=== PATIENT | female | born 2000 | race Caucasian/White ===

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

== ENCOUNTER 2020-03-15 21:04 | Emergency (ER) | payer SELFPAY ==
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
[2020-03-15 23:43] VITALS: TEMP 97.7
[2020-03-15 23:44] VITALS: BP 133/80; O2SAT 99
--- NOTE | 2020-03-16 07:40 | RAD REPORT ---
EXAM DESCRIPTION: RAD - Foot Right 3 View - 03/15/2020 10:06 pm CLINICAL HISTORY: Right foot pain status post injury FINDINGS: No fracture or dislocation is seen
== END 2020-03-15 23:36 | disposition home or self-care (01) ==
LOC: ER 21:04
DX: M79.671 Pain in right foot (principal)
CPT/HCPCS: 99283

== ENCOUNTER 2022-04-22 17:28 | Emergency (ER) | payer SELFPAY ==
[2022-04-22 18:32] LABS: Urine Blood Negative (Negative); Urine Glucose Negative (Negative); Urine Protein Negative (Negative); Urine Specific Gravity >=1.030 (1.005-1.030); Urine pH 5.5 (5.0-7.0)
[2022-04-22] MEDS ORDERED: ONDANSETRON 4 MG/2 ML VIAL ONE (18:33)
[2022-04-22] MEDS ORDERED: NA CHLORIDE 0.9% 1,000 ML ONE (18:33)
[2022-04-22 18:34] LABS: Absolute Lymphocytes (CBC) 1.9 K/uL (0.7-4.9); Hematocrit 41.5 % (36.0-45.0); MPV 9.7 fL (7.6-11.3); RBC Red Blood Cell Count 4.99 M/uL (3.86-4.86)
[2022-04-22 18:45] LABS: Urine Bacteria >50 /HPF (<20); Urine Mucus 3+ /HPF (NONE SEEN); Urine RBC <5 /HPF (NONE SEEN)
[2022-04-22 18:51] LABS: Bilirubin Total 0.7 mg/dL (0.2-1.0); Potassium 3.5 mmol/L (3.5-5.1); Protein, Total 7.3 g/dL (6.4-8.2)
--- NOTE | 2022-04-22 19:19 | RAD REPORT ---
EXAM DESCRIPTION: CTAbdomen Pelvis W Contrast - 04/22/2022 7:04 pm CLINICAL HISTORY: Abdominal pain. R flank and RLQ pain COMPARISON: <Comparisons> TECHNIQUE: Biphasic CT imaging of the abdomen and pelvis was performed with 100 ml non-ionic IV cont rast. All CT scans are performed using dose optimization technique as appropriate and may include automated exposure control or mA/KV adjustment according to patient size. FINDINGS: The lung bases are clear.Fluid is seen in the distal esophagus. Small hiatal hernia. The liver, spleen, pancreas, adrenal glands and kidneys are within normal limits. No bowel obstruction, free air, free fluid or abscess. The appendix is normal. No evidence of signi ficant lymphadenopathy. No suspicious bony findings. IMPRESSION: No acute intra-abdominal or pelvic finding.
[2022-04-22] MEDS ORDERED: CEFTRIAXONE 1000 MG/VIAL ONE (19:32)
--- NOTE | 2022-04-22 19:37 | ER ---
Nurse's Notes [facility] Name: Christie Ceron Age: 21 yrs Sex: Female : 2000 Arrival Date: 04/22/2022 Time: 17:33 Bed 9 Private MD: Diagnosis: UTI/ Urinary tract infection, site not specified Presentation: 04/22 17:41 Chief complaint: Patient states: Right sided upper and lower abdominal pain X 2 weeks. ld1 Nausea. Coronavirus screen: At this time, the client does not indicate any symptoms associated with coronavirus-19. Ebola Screen: No symptoms or risks identified at this time. Initial Sepsis Screen: Does the patient meet any 2 criteria? No. Patient's initial sepsis screen is negative. Does the patient have a suspected source of infection? No. Patient's initial sepsis screen is negative. Risk Assessment: Do you want to hurt yourself or someone else? Patient reports no desire to harm self or others. Onset of symptoms was April 22, 2022. 17:41 Method Of Arrival: Ambulatory ld1 17:41 Acuity: DOMO 3 ld1 Triage Assessment: 17:42 General: Appears in no apparent distress. comfortable, Behavior is calm, cooperative, ld1 appropriate for age. Pain: Complains of pain in right upper quadrant and right lower quadrant Pain does not radiate. Pain currently is 8 out of 10 on a pain scale. Quality of pain is described as throbbing. EENT: No signs and/or symptoms were reported regarding the EENT system. Neuro: Level of Consciousness is awake, alert, obeys commands, Oriented to person, place, time, situation. Cardiovascular: Capillary refill < 3 seconds Patient's skin is warm and dry. Respiratory: Airway is patent Respiratory effort is even, unlabored. GI: Abdomen is round non-distended, Reports nausea. : No signs and/or symptoms were reported regarding the genitourinary system. 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 - Social history:: Smoking status: Patient denies any tobacco usage or history of. Patient/guardian denies using alcohol. Screenin:19 Abuse screen: Denies threats or abuse. Denies injuries from another. Nutritional ld1 screening: No deficits noted. Tuberculosis screening: No symptoms or risk factors identified. Fall Risk None identified. Assessment: 19:19 Reassessment: Patient appears in no apparent distress at this time. No changes from ld1 previously documented assessment. Patient and/or family updated on plan of care and expected duration. Pain level reassessed. Patient is alert, oriented x 3, equal unlabored respirations, skin warm/dry/pink. 20:02 Reassessment: Patient appears in no apparent distress at this time. Patient and/or ld1 family updated on plan of care and expected duration. Pain level reassessed. Patient is alert, oriented x 3, equal unlabored respirations, skin warm/dry/pink. 20:02 GI: Bowel sounds present X 4 quads. Abd is soft Abd is non tender. ld1 Vital Signs: 17:41 BP 145 / 77; Pulse 90; Resp 18; Temp 98.3(TE); Pulse Ox 99% on R/A; Weight 72.57 kg; ld1 Height 5 ft. 0 in. (152.40 cm); Pain 9/10; 19:19 BP 139 / 76; Pulse 89; Resp 18; Pulse Ox 100% on R/A; ld1 20:02 BP 141 / 79; Pulse 86; Resp 18; Pulse Ox 100% on R/A; ld1 17:41 Body Mass Index 31.25 (72.57 kg, 152.40 cm) ld1 ED Course: 17:33 Patient arrived in ED. am2 17:34 Orly Grigsby FNP is [facility]. jh7 17:34 Yoseph Taylor DO is Attending Physician. jh7 17:42 Triage completed. ld1 17:42 Arm band placed on right wrist. ld1 18:25 Inserted saline lock: 20 gauge in right antecubital area, using aseptic technique. zm Blood collected. 18:26 CBC with Diff Sent. zm 18:26 CMP Sent. zm 18:26 Lipase Sent. zm 18:26 Urine Microscopic Only Sent. zm 19:06 CT Abd/Pelvis - IV Contrast Only In Process Unspecified. EDMS 19:18 Dibbern, Nicole, RN is Primary Nurse. ld1 19:19 Patient has correct armband on for positive identification. Placed in gown. Bed in low ld1 position. Call light in reach. Side rails up X2. secured entrance monitor on. Pulse ox on. NIBP on. Door closed. Noise minimized. Warm blanket given. 19:19 No provider procedures requiring assistance completed. ld1 20:03 Patient admitted, IV remains in place. ld1 Administered Medications: 18:32 Drug: NS 0.9% 1000 ml Route: IV; Rate: 1 bolus; Site: right antecubital; iw 18:32 Drug: Zofran (Ondansetron) 4 mg Route: IVP; Site: right antecubital; iw 19:33 Drug: Rocephin (cefTRIAXone) 1 grams Route: IV; Rate: 1 calculated rate; Site: right ld1 antecubital; Medication: 19:19 VIS not applicable for this client. ld1 Outcome: 19:37 Discharge ordered by . eliza 20:02 Discharged to home ambulatory, with family. ld1 20:02 Condition: stable 20:02 Discharge instructions given to patient, family, Instructed on discharge instructions, follow up and referral plans. medication usage, Demonstrated understanding of instructions, follow-up care, medications, Prescriptions given X 1. 20:03 Patient left the ED. ld1 Signatures: Dispatcher [employer] EDMS Colleen Curtis, RN Trena Joshua am2 Nicole Washington, RN DAMON ld1 Mya Watt Jennifer, FNP [facility]
--- NOTE | 2022-04-22 19:37 | EDPHYS ---
Physician Documentation [facility] Name: Christie Ceron Age: 21 yrs Sex: Female : 2000 Arrival Date: 04/22/2022 Time: 17:33 Bed 9 Private MD: ED Physician Yoseph Taylor HPI: 04/22 17:50 This 21 yrs old Female presents to ER via Ambulatory with complaints of Abdominal Pain jh7 - low. 17:50 The patient presents with abdominal pain right lower quadrant. Onset: The jh7 symptoms/episode began/occurred 2 week(s) ago. The symptoms radiate to right upper quadrant. Associated signs and symptoms: Pertinent positives: nausea, Pertinent negatives: diarrhea, shortness of breath, vaginal discharge, vomiting. Patient presents for right lower quadrant pain for 2 weeks. States that movement worsens the pain, and that food has no effect on her pain. LMP last week. Reports that her belly is tender to the touch, and reports nausea and dizziness as well. States that the pain is now radiating to her right upper quadrant. Denies diarrhea and states that she had a normal bowel movement today. Denies any concern for STI. No other history.. 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 - Social history:: Smoking status: Patient denies any tobacco usage or history of. Patient/guardian denies using alcohol. ROS: 17:50 Constitutional: Negative for fever, chills, and weight loss, ENT: Negative for injury, jh7 pain, and discharge, Cardiovascular: Negative for chest pain, palpitations, and edema, Respiratory: Negative for shortness of breath, cough, wheezing, and pleuritic chest pain, Back: Negative for injury and pain, Skin: Negative for injury, rash, and discoloration, Neuro: Negative for headache, weakness, numbness, tingling, and seizure. 17:50 Abdomen/GI: Positive for abdominal pain, nausea, Negative for diarrhea, rectal pain, rectal bleeding. 17:50 All other systems are negative. Exam: 17:50 Constitutional: This is a well developed, well nourished patient who is awake, alert, jh7 and in no acute distress. ENT: Nares patent. No nasal discharge, no septal abnormalities noted. Tympanic membranes are normal and external auditory canals are clear. Oropharynx with no redness, swelling, or masses, exudates, or evidence of obstruction, uvula midline. Mucous membranes moist. Cardiovascular: Regular rate and rhythm with a normal S1 and S2. No gallops, murmurs, or rubs. Normal PMI, no JVD. No pulse deficits. Respiratory: Lungs have equal breath sounds bilaterally, clear to auscultation and percussion. No rales, rhonchi or wheezes noted. No increased work of breathing, no retractions or nasal flaring. Back: No spinal tenderness. No costovertebral tenderness. Full range of motion. Skin: Warm, dry with normal turgor. Normal color with no rashes, no lesions, and no evidence of cellulitis. Neuro: Awake and alert, GCS 15, oriented to person, place, time, and situation. Normal gait. 17:50 Abdomen/GI: Inspection: abdomen appears normal, Bowel sounds: normal, Palpation: soft, mild abdominal tenderness, in the right lower quadrant, no appreciated organomegaly. Vital Signs: 17:41 BP 145 / 77; Pulse 90; Resp 18; Temp 98.3(TE); Pulse Ox 99% on R/A; Weight 72.57 kg; ld1 Height 5 ft. 0 in. (152.40 cm); Pain 9/10; 19:19 BP 139 / 76; Pulse 89; Resp 18; Pulse Ox 100% on R/A; ld1 20:02 BP 141 / 79; Pulse 86; Resp 18; Pulse Ox 100% on R/A; ld1 17:41 Body Mass Index 31.25 (72.57 kg, 152.40 cm) ld1 MDM: 18:56 Patient medically screened. [facility] 19:36 Differential diagnosis: appendicitis, Pyelonephritis, urinary tract infection. Data [facility] reviewed: vital signs, nurses notes, lab test result(s), radiologic studies, CT scan. Data interpreted: Pulse oximetry: is 100 %. Interpretation: normal. Counseling: I had a detailed discussion with the patient and/or guardian regarding: the historical points, exam findings, and any diagnostic results supporting the discharge/admit diagnosis, to return to the emergency department if symptoms worsen or persist or if there are any questions or concerns that arise at home. Response to treatment: the patient's symptoms have mildly improved after treatment. ED course: All labs and CT scan results were discussed with the patient. She remained stable and in no distress throughout her ER visit. Her symptoms mildly improved after medication administration. Informed her that she will be treated for UTI, to take medications as prescribed, and increase p.o. fluid intake. If her symptoms worsen or she develops any new concerning symptoms, she may return to the ER for further eval. The patient understood the plan of care.. 04/22 17:43 Order name: CBC with Diff; Complete Time: 18:48 [facility] 04/22 17:43 Order name: CMP; Complete Time: 18:58 [facility] 04/22 17:43 Order name: Lipase; Complete Time: 18:58 [facility] 04/22 17:43 Order name: Urine Microscopic Only; Complete Time: 18:48 [facility] 04/22 18:32 Order name: Urine Dipstick-Ancillary; Complete Time: 18:48 [facility] 04/22 18:48 Order name: Urine Culture [facility] 04/22 17:43 Order name: CT Abd/Pelvis - IV Contrast Only; Complete Time: 19:23 [facility] 04/22 17:43 Order name: IV Saline Lock; Complete Time: 18:26 [facility] 04/22 17:43 Order name: Labs collected and sent; Complete Time: 18:26 [facility] 04/22 17:43 Order name: Urine Dipstick-Ancillary (obtain specimen); Complete Time: 18:32 [facility] 04/22 17:43 Order name: Urine Test (obtain specimen); Complete Time: 18:33 [facility] Administered Medications: 18:32 Drug: NS 0.9% 1000 ml Route: IV; Rate: 1 bolus; Site: right antecubital; iw 18:32 Drug: Zofran (Ondansetron) 4 mg Route: IVP; Site: right antecubital; iw 19:33 Drug: Rocephin (cefTRIAXone) 1 grams Route: IV; Rate: 1 calculated rate; Site: right ld1 antecubital; Disposition: 22:06 Co-signature as Attending Physician, Yoseph Taylor DO I was immediately available on-site ms3 in the Emergency Department for consultation in the care of the patient. . Disposition Summary: 04/22/22 19:37 Discharge Ordered Location: Home [facility] Problem: new [facility] Symptoms: have improved [facility] Condition: Stable [facility] Diagnosis - UTI/ Urinary tract infection, site not specified [facility] Followup: [facility] - With: Private Physician - When: 2 - 3 days - Reason: Recheck today's complaints Discharge Instructions: - Discharge Summary Sheet [facility] - Urinary Tract Infection, Adult [facility] - Antibiotic Medicine, Adult [facility] Forms: - Medication Reconciliation Form [facility] - Thank You Letter [facility] - Antibiotic Education [facility] Prescriptions: - Macrobid 100 mg Oral Capsule - take 1 capsule by ORAL route every 12 hours for 7 days; 14 capsule; Refills: 0, jh7 Product Selection Permitted Signatures: Dispatcher [employer] Colleen Johnson RN Yoseph Faustin DO DO ms3 Nicole Washington RN RN ld1 Orly Grigsby FNP FORM BUILDING SUPERVISOR [facility]
[2022-04-22 20:18] VITALS: TEMP 98.3
[2022-04-22 20:20] VITALS: O2SAT 100
[2022-04-22 20:21] VITALS: BP 141/79
== END 2022-04-22 20:03 | disposition home or self-care (01) ==
LOC: ER 17:28
DX: N39.0 Urinary tract infection, site not specified (principal)
CPT/HCPCS: 36415; 74177; 80053; 81003; 81015; 83690; 85025; 87086; 87088; 96374; 96375; 99284; J2405; J7030; Q9967

== ENCOUNTER 2024-12-08 19:22 | Emergency (ER) | payer SELFPAY ==
--- OUTSIDE RECORDS SUMMARY | 2024-12-08 19:25 | XMS REPORT | Continuity of Care Document ---
Author Name Unknown Address [address] [facility] [address] [place] [address] [facility] Address [address] [facility] 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 Name Role Phone Jatinder Sim Attending Clinician Unavailable Physician, No Primary or Family Admitting Clinic rupinder Unavailable Payers Payer Name Policy Type Policy Number Effective Date Expirati on Date Source Allergies, Adverse Reactions, Alerts Allergy Name Allergy Type Status Severity Reaction(s) Onset Date Inactive Date Treating Clinician Comments Source No Known Allergie s DA Active U 2023-11 00:00: 00 [facility] Encounters Start Date/Time End Date/Time Encounter Type Admission Type Attending Clinicians Care Facility Care Department Encounter ID Source 2024-10-21 11:11:00 2024-10-21 12:56:00 Emergency EM Jatinder Sim [facility] [id number] 20 [facility]
[2024-12-08 20:26] LABS: Hematocrit 40.4 % (36.0-45.0); Hemoglobin 14.2 g/dL (12.0-15.0); MCH 28.9 pg (27.0-35.0); MCHC 35.2 g/dL (32.0-36.0); MPV 10.3 fL (7.6-11.3); Platelets 209 thou/uL (152-406); RBC Red Blood Cell Count 4.93 M/uL (3.86-4.86); Red Cell Distribution Width 13.2 % (12.1-15.2)
--- NOTE | 2024-12-08 21:20 | RAD REPORT ---
EXAM: Transvaginal OB HISTORY: ABD PAIN COMPARISON: None TECHNIQUE: Multiple grayscale and color Doppler images were obtained in a pelvic ultrasound. Spectral analysis of the Doppler waveforms of the ovaries were performed. FINDINGS: UTERUS: There is an intrauterine gestational sac. This contains a yolk sac and pole. [place]-rump length: 0.8 cm which estimates gestational age at 6 week 3 day. A heart rate is detected at 132 bpm. Small subchorionic hemorrhage. No free fluid is seen in the pelvis. RIGHT OVARY: Vascular flow present. No suspicious mass. LEFT OVARY: Obscured by bowel gas.. IMPRESSION: Single live intrauterine with estimated age of 6 week 4 day. Small subchorionic hemorrhage which is typically of little significance.
--- NOTE | 2024-12-08 21:41 | ER ---
Nurse's Notes [facility] Name: Christie Ceron Age: 24 yrs Sex: Female : 2000 Arrival Date: 12/08/2024 Time: 19:22 Bed 18 Private MD: Diagnosis: Threatened Presentation: 12/08 19:53 Chief complaint: Patient states: reports vaginal bleeding like normal cramping but she bm8 is 6 weeks . Coronavirus screen: Vaccine status: At this time, the client does not indicate any symptoms associated with coronavirus-19. Ebola Screen: Patient negative for fever greater than or equal to 101.5 degrees Fahrenheit, and additional compatible Ebola Virus Disease symptoms Patient denies exposure to infectious person. Patient denies travel to an Ebola-affected area in the 21 days before illness onset. No symptoms or risks identified at this time. Initial Sepsis Screen: Does the patient meet any 2 criteria? No. Patient's initial sepsis screen is negative. Does the patient have a suspected source of infection? No. Patient's initial sepsis screen is negative. Risk Assessment: Do you want to hurt yourself or someone else? Patient reports no desire to harm self or others. Onset of symptoms was December 08, 2024 at 19:00. 19:53 Method Of Arrival: Ambulatory bm8 19:53 Acuity: DOMO 3 bm8 Triage Assessment: 19:54 General: Appears in no apparent distress. comfortable, Behavior is calm, cooperative, bm8 appropriate for age. Pain: Complains of pain in groin and suprapubic area Pain currently is 5 out of 10 on a pain scale. EENT: No deficits noted. No signs and/or symptoms were reported regarding the EENT system. Neuro: No deficits noted. Level of Consciousness is awake, alert, obeys commands, Oriented to person, place, time, situation, Appropriate for age. Cardiovascular: Denies chest pain. Respiratory: Airway is patent Trachea midline Respiratory effort is even, unlabored, Respiratory pattern is regular, symmetrical, Breath sounds are clear bilaterally. : Reports vaginal bleeding that is bright red, moderate flow. 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 - Infectious Disease History:: Denies. - Social history:: Smoking status: Patient denies any tobacco usage or history of. - Family history:: not pertinent. Screenin:00 [place] ED Fall Risk Assessment (Adult) History of falling in the last 3 months, mt4 including since admission No falls in past 3 months (0 pts) Confusion or Disorientation No (0 pts) Intoxicated or Sedated No (0 pts) Impaired Gait No (0 pts) Mobility Assist Device Used No (0 pt) Altered Elimination No (0 pt) Score/Fall Risk Level 0 - 2 = Low Risk. Abuse screen: Denies threats or abuse. Nutritional screening: No deficits noted. Tuberculosis screening: No symptoms or risk factors identified. Exposure risk/Travel Screening: None identified. Assessment: 21:00 Reassessment: Patient is alert, oriented x 3, equal unlabored respirations, skin mt4 warm/dry/pink. 21:00 General: Appears in no apparent distress. comfortable, Behavior is calm, cooperative, mt4 appropriate for age. Pain: Denies pain. 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 Gait is steady, Speech is normal, Facial symmetry appears normal. Cardiovascular: Capillary refill < 3 seconds. Respiratory: Airway is patent. GI: Abdomen is non-distended. : Denies burning with urination. Musculoskeletal: Range of motion: intact in all extremities. 22:00 Reassessment: Patient and/or family updated on plan of care and expected duration. Pain mt4 level reassessed. Patient denies pain at this time. Patient states feeling better. Vital Signs: 19:53 BP 159 / 86; Pulse 85; Resp 17; Temp 98.2; Pulse Ox 100% ; Weight 80.74 kg; Height 5 bm8 ft. 0 in. ; Pain 5/10; 21:00 BP 124 / 54; Pulse 82; Resp 16; Temp 98.6(O); Pulse Ox 100% on R/A; Pain 0/10; mt4 21:30 BP 133 / 73; Pulse 88; Resp 16; Pulse Ox 99% on R/A; mt4 19:53 Body Mass Index 34.76 (80.74 kg, 152.4 cm) bm8 19:53 Pain Scale: Adult bm8 21:00 Pain Scale: Adult mt4 [place] Coma Score: 21:00 Eye Response: spontaneous(4). Motor Response: obeys commands(6). Verbal Response: mt4 oriented(5). Total: 15. 12/09 06:20 Eye Response: spontaneous(4). Motor Response: obeys commands(6). Verbal Response: sp4 oriented(5). Total: 15. ED Course: 12/08 19:26 Patient arrived in ED. ra3 19:54 Triage completed. bm8 19:54 Arm band placed on right wrist. bm8 20:00 Ajay Graham MD is Attending Physician. sp4 20:23 Bishop Mooney, RN is Primary Nurse. mt4 20:43 Transvaginal OB In Process Unspecified. EDMS 20:44 Inserted saline lock: 20 gauge in right antecubital area, using aseptic technique. af3 Blood collected. Flushed with 10 mL NS. 21:00 Patient has correct armband on for positive identification. Fall risk band placed. Bed mt4 in low position. Side rails up X 1. Provided Education on: fall education . Client placed on continuous cardiac and pulse oximetry monitoring. NIBP monitoring applied. Lights dimmed. Warm blanket given. Pillow given. Verbal reassurance given. Assisted to bathroom. 21:00 No provider procedures requiring assistance completed. Patient maintains SpO2 mt4 saturation greater than 95% on room air. 22:00 IV discontinued, intact, bleeding controlled, No redness/swelling at site. Pressure mt4 dressing applied. Administered Medications: No medications were administered Medication: 21:00 VIS not applicable for this client. mt4 Outcome: 21:41 Discharge ordered by . sp4 22:00 Discharged to home ambulatory, mt4 22:00 Condition: stable 22:00 Discharge instructions given to patient, significant other, Instructed on discharge instructions, follow up and referral plans. Demonstrated understanding of instructions, follow-up care, 22:02 Patient left the ED. mt4 Signatures: Dispatcher [employer] Ajay Burk MD MD sp4 Ximena Rodriguez ra3 Terrell Crouch, RN RN bm8 Bishop Mooney, RN RN mt4 Yanna Duke 3 Corrections: (The following items were deleted from the chart) 19:55 19:54 PMHx: Unable to Obtain; bm8 bm8
--- NOTE | 2024-12-08 21:41 | EDPHYS ---
Physician Documentation [facility] Name: Christie Ceron Age: 24 yrs Sex: Female : 2000 Arrival Date: 12/08/2024 Time: 19:22 Bed 18 Private MD: ED Physician Ajay Graham HPI: 12/08 20:00 This 24 yrs old Female presents to ER via Ambulatory with complaints of sp4 Vaginal Bleeding - 6wks preg. 12/09 06:20 24-year-old female who is at 6 weeks 4 days by LMP presents with acute onset sp4 of painless vaginal bleeding.. 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 - Infectious Disease History:: Denies. - Social history:: Smoking status: Patient denies any tobacco usage or history of. - Family history:: not pertinent. ROS: 12/09 06:20 Constitutional: Negative for fever, chills, and weight loss, positive for painless sp4 vaginal bleeding All other systems are negative, Exam: 06:20 Constitutional: This is a well developed, well nourished patient who is awake, alert, sp4 and in no acute distress. Head/Face: Normocephalic, atraumatic. Eyes: Pupils equal round and reactive to light, extra-ocular motions intact. Lids and lashes normal. Conjunctiva and sclera are not injected. Cornea within normal limits. Periorbital areas with no swelling, redness, or edema. ENT: Nares patent. No nasal discharge, no septal abnormalities noted. Tympanic membranes are normal and external auditory canals are clear. Oropharynx with no redness, swelling, or masses, exudates, or evidence of obstruction, uvula midline. Mucous membranes moist. Neck: Trachea midline, no thyromegaly or masses palpated, and no cervical lymphadenopathy. Supple, full range of motion without nuchal rigidity, or vertebral point tenderness. Chest/axilla: Normal chest wall appearance and motion. Nontender with no deformity. No lesions are appreciated. Cardiovascular: Regular rate and rhythm with a normal S1 and S2. No gallops, murmurs, or rubs. Normal PMI, no JVD. No pulse deficits. Respiratory: Lungs have equal breath sounds bilaterally, clear to auscultation and percussion. No rales, rhonchi or wheezes noted. No increased work of breathing, no retractions or nasal flaring. Abdomen/GI: Soft, with normal bowel sounds. No distension or tympany. No guarding or rebound. No evidence of tenderness throughout. Back: No spinal tenderness. No costovertebral tenderness. Skin: Warm, dry with normal turgor. Normal color with no rashes, no lesions, and no evidence of cellulitis. MS/ Extremity: Pulses equal, no cyanosis. Neurovascular intact. Full, normal range of motion. Neuro: Awake and alert, GCS 15, oriented to person, place, time, and situation. Cranial nerves II-XII grossly intact. Motor strength 5/5 in all extremities. Sensory grossly intact. Psych: Awake, alert, with orientation to person, place and time. Behavior, mood, and affect are within normal limits Vital Signs: 12/08 19:53 BP 159 / 86; Pulse 85; Resp 17; Temp 98.2; Pulse Ox 100% ; Weight 80.74 kg; Height 5 bm8 ft. 0 in. ; Pain 5/10; 21:00 BP 124 / 54; Pulse 82; Resp 16; Temp 98.6(O); Pulse Ox 100% on R/A; Pain 0/10; mt4 21:30 BP 133 / 73; Pulse 88; Resp 16; Pulse Ox 99% on R/A; mt4 19:53 Body Mass Index 34.76 (80.74 kg, 152.4 cm) bm8 19:53 Pain Scale: Adult bm8 21:00 Pain Scale: Adult mt4 [place] Coma Score: 21:00 Eye Response: spontaneous(4). Motor Response: obeys commands(6). Verbal Response: mt4 oriented(5). Total: 15. 12/09 06:20 Eye Response: spontaneous(4). Motor Response: obeys commands(6). Verbal Response: sp4 oriented(5). Total: 15. MDM: 12/08 20:01 Medical Screening Exam initiated sp4 21:36 ED course: EXAM: Transvaginal OB HISTORY: ABD PAIN COMPARISON: None TECHNIQUE: Multiple sp4 grayscale and color Doppler images were obtained in a pelvic ultrasound. Spectral analysis of the Doppler waveforms of the ovaries were performed. FINDINGS: UTERUS: There is an intrauterine gestational sac. This contains a yolk sac and pole. [place]-rump length: 0.8 cm which estimates gestational age at 6 week 3 day. A heart rate is detected at 132 bpm. Small subchorionic hemorrhage. No free fluid is seen in the pelvis. RIGHT OVARY: Vascular flow present. No suspicious mass. LEFT OVARY: Obscured by bowel gas.. IMPRESSION: Single live intrauterine with estimated age of 6 week 4 day. Small subchorionic hemorrhage which is typically of little significance. . 12/09 06:22 Differential diagnosis: appendicitis, cervicitis, dysmenorrhea, malignancy. Data sp4 reviewed: vital signs, nurses notes, lab test result(s), radiologic studies, ultrasound. Consideration of Admission/Observation Escalation of care including admission/observation considered. ED course: Patient is stable for discharge home. Advised repeat hCG in 48 hours.. 12/08 20:01 Order name: HCG-Quantitative; Complete Time: 21:16 sp4 12/08 20:01 Order name: Abo/rh Typing; Complete Time: 21:16 sp4 12/08 20:01 Order name: CBC w/o diff; Complete Time: 21:16 sp4 12/08 20:43 Order name: Transvaginal OB; Complete Time: 21:37 EDMS 12/08 20:12 Order name: Saline Lock; Complete Time: 20:44 sp4 Administered Medications: No medications were administered Disposition Summary: 12/08/24 21:41 Discharge Ordered Notes: Repeat HCG level in 2 days or repeat Ultrasound in 2 weeks Location: Home sp4 Problem: new sp4 Symptoms: have improved sp4 Condition: Stable sp4 Diagnosis - Threatened sp4 Followup: sp4 - With: Private Physician - When: 2 - 3 days - Reason: Recheck today's complaints Discharge Instructions: - Discharge Summary Sheet sp4 - Threatened Miscarriage sp4 Forms: - Patient Portal Instructions sp4 Signatures: Dispatcher [employer] EDAjay Person MD MD sp4 Terrell Crouch, RN RN bm8 Corrections: (The following items were deleted from the chart) 12/08 19:55 19:54 PMHx: Unable to Obtain; bm8 bm8 20:01 20:01 QUANTITATIVE HCG+C.LAB.BRZ ordered. EDMS EDMS 20:01 20:01 ABO/RH TYPING+BB.LAB.BRZ ordered. EDMS EDMS 20:43 20:01 OB Limited+US.RAD.BRZ ordered. EDMS EDMS
[2024-12-09 03:19] VITALS: BP 133/73; TEMP 98.6; O2SAT 99
== END 2024-12-08 22:02 | disposition home or self-care (01) ==
LOC: ER 19:22
DX: O20.0 Threatened abortion (principal)
CPT/HCPCS: 36415; 76817; 84702; 85027; 86900; 86901; 99284

== ENCOUNTER 2024-12-14 17:19 | Emergency (ER) | payer OTHER, SELFPAY ==
--- OUTSIDE RECORDS SUMMARY | 2024-12-14 17:20 | XMS REPORT | Continuity of Care Document ---
Author Name Unknown Address [address] [facility] [address] [place] [address] [facility] Address [address] [facility] [place] [address] Care Team Providers Care Fitting Room Checker Name Role Phone Jatinder Sim Attending Clinician Unavailable Physician, No Primary or Family Admitting Clinic rupinder Unavailable Payers Payer Name Policy Type Policy Number Effective Date Expirati on Date Source Allergies, Adverse Reactions, Alerts Allergy Name Allergy Type Status Severity Reaction(s) Onset Date Inactive Date Treating Clinician Comments Source No Known Allergie s DA Active U 2023-11 00:00: 00 [facility] Encounters Start Date/Time End Date/Time Encounter Type Admission Type Attending Clinicians Care Facility Care Department Encounter ID Source 2024-10-21 11:11:00 2024-10-21 12:56:00 Emergency EM Jatinder Sim [facility] [id number] 20 [facility]
[2024-12-14 18:26] LABS: Absolute Basophils 0.1 K/uL (0-0.5); Absolute Eosinophils 0.1 K/uL (0-0.5); Absolute Lymphocytes (CBC) 2.4 K/uL (0.7-4.9); Absolute Monocytes 0.9 K/uL (0.1-1.3); Absolute Neutrophil 6.7 K/uL (1.8-8.0); Basophils % 0.5 % (0-1.3); Eosinophils % 0.8 % (0-4.4); Hematocrit 39.4 % (36.0-45.0); Hemoglobin 13.9 g/dL (12.0-15.0); Lymphocytes % 23.4 % (15.3-44.8); MCH 28.8 pg (27.0-35.0); MCHC 35.2 g/dL (32.0-36.0); MCV 81.9 fL (80-100); MPV 10.5 fL (7.6-11.3); Neutrophils % 66.3 % (41.7-73.7); Nucleated Red Blood Cells % 0.1 % (0-0); Platelets 217 thou/uL (152-406); RBC Red Blood Cell Count 4.82 M/uL (3.86-4.86); Red Cell Distribution Width 13.3 % (12.1-15.2)
--- NOTE | 2024-12-14 18:34 | RAD REPORT ---
EXAMINATION: Transvaginal OB COMPARISON: None. HISTORY: 7w preg vaginal bleeding TECHNIQUE: Real-time ultrasound was performed through the pelvis. A transvaginal scan was performed t o better visualize the intrauterine contents and adnexa. FINDINGS: There is a single living intrauterine . Cardiac activity measured 155 BPM. 20 x 13 mm inferiorly located subchorionic bleed. Both ovaries are visualized and appear unremarkable. There is no free fluid in the cul-de-sac. Measurements and Calculations: Mcdougal rump length 12 mm, consistent with a sonographic age of 7 weeks, 3 days. Estimated date of del burt is 07/30/2025 IMPRESSION: Single living intrauterine , with a composite sonographic age of 7 weeks, 3 days. 20 x 13 mm inferiorly located subchorionic bleed.
[2024-12-14 19:01] LABS: Anion Gap 8.7 mEq/L (5.0-15.0); Potassium 3.7 mEq/L (3.5-5.1)
--- NOTE | 2024-12-14 19:10 | EDPHYS ---
Physician Documentation [facility] Name: Christie Ceron Age: 24 yrs Sex: Female : 2000 Arrival Date: 12/14/2024 Time: 17:19 Bed 10 Private MD: ED Physician Aldo Ventura HPI: 12/14 17:42 This 24 yrs old Female presents to ER via Ambulatory with complaints of Vaginal ec2 Bleeding - 7wks preg. 17:42 Patient arrives today for vaginal spotting, approximately 7 weeks . Recent ec2 evaluation, was told to return to the ED, is having persistent vaginal spotting. Patient is blood type a positive, recent hCG level at 30,000.. 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 - Infectious Disease History:: Denies. - Social history:: Smoking status: Patient denies any tobacco usage or history of. ROS: 17:43 Constitutional: as per hpi ec2 Exam: 17:43 Constitutional: GEN: NAD Head: atraumatic Eyes: EOMI Ears: External ears are ec2 normal. CV: regular rate LUNGS: no respiratory distress ABD: non-distended SKIN: no evidence of rashes MSK: no evidence of trauma Vital Signs: 17:38 BP 151 / 93; Pulse 83; Resp 18; Temp 98.3(TE); Pulse Ox 100% on R/A; Weight 80.74 kg; ld1 Height 5 ft. 0 in. ; Pain 0/10; 19:17 BP 138 / 82; Pulse 81; Resp 17; Pulse Ox 100% ; me1 17:38 Body Mass Index 34.76 (80.74 kg, 152.4 cm) ld1 17:38 Pain Scale: Adult ld1 MDM: 17:22 Medical Screening Exam initiated ec2 17:43 Data reviewed: vital signs, nurses notes. ED course: Patient arrives today for vaginal ec2 spotting in the setting of . Examination is unrevealing. Will obtain lab work, hCG level, repeat ultrasonography. Will forego RhoGAM given the patient is blood type a positive.. 18:51 ED course: Ultrasound shows subchorionic hemorrhage otherwise live IUP. ec2 19:09 ED course: hCG appropriately uptrending. Will discharge home. Return precautions given. ec2 12/14 17:22 Order name: CBC with Diff; Complete Time: 18:36 ec2 12/14 17:22 Order name: BMP; Complete Time: 19:09 ec2 12/14 17:22 Order name: Abo/rh Typing ec2 12/14 18:17 Order name: HCG, Quantitative; Complete Time: 19:09 EDMS 12/14 17:22 Order name: Transvaginal OB US; Complete Time: 18:36 ec2 12/14 17:22 Order name: IV; Complete Time: 19:11 ec2 Administered Medications: No medications were administered Disposition Summary: 12/14/24 19:09 Discharge Ordered Notes: Location: Home ec2 Condition: Stable ec2 Diagnosis - Subchorionic Hemorrhage ec2 - 7 weeks ec2 Followup: ec2 - With: Private Physician - When: - Reason: Re-evaluation by your physician Discharge Instructions: - Discharge Summary Sheet ec2 - Subchorionic Hematoma ec2 Forms: - Medication Reconciliation Form ec2 - Antibiotic Education ec2 - Prescription Opioid Use ec2 - Patient Portal Instructions ec2 - Leadership Thank You Letter ec2 Signatures: Dispatcher [employer] Nicole Miranda RN RN ld1 Aldo Ventura MD MD ec2 Corrections: (The following items were deleted from the chart) 17:23 17:23 CBC+H.LAB.BRZ ordered. EDMS EDMS 17:23 17:23 BASIC METABOLIC PANEL+C.LAB.BRZ ordered. EDMS EDMS 17:23 17:23 ABO/RH TYPING+BB.LAB.BRZ ordered. EDMS EDMS 17:23 17:23 Transvaginal Ob+US.RAD.BRZ ordered. EDMS EDMS 17:43 17:42 Patient arrives today for vaginal spotting, approximately 7 weeks . ec2 Recent evaluation, was told to return to the ED, is having persistent vaginal spotting.. ec2 18:18 17:43 QUANTITATIVE HCG+C.LAB.BRZ ordered. EDMS EDMS
--- NOTE | 2024-12-14 19:10 | ER ---
Nurse's Notes [facility] Name: Christie Ceron Age: 24 yrs Sex: Female : 2000 Arrival Date: 12/14/2024 Time: 17:19 Bed 10 Private MD: Diagnosis: Subchorionic Hemorrhage;7 weeks Presentation: 12/14 17:38 Chief complaint: Patient states: Recent confirmation of on night. Pt ld1 was told to follow up 2 days later, unable due to weather. Pt requesting repeat HCG level. Reports spotting X 6 days. Coronavirus screen: At this time, the client does not indicate any symptoms associated with coronavirus-19. Ebola Screen: No symptoms or risks identified at this time. Initial Sepsis Screen: Does the patient meet any 2 criteria? No. Patient's initial sepsis screen is negative. Does the patient have a suspected source of infection? No. Patient's initial sepsis screen is negative. Risk Assessment: Do you want to hurt yourself or someone else? Patient reports no desire to harm self or others. Onset of symptoms was December 14, 2024. 17:38 Method Of Arrival: Ambulatory ld1 17:38 Acuity: DOMO 3 ld1 Triage Assessment: 17:38 General: Appears in no apparent distress. comfortable, Behavior is calm, cooperative, ld1 appropriate for age. Pain: Denies pain. EENT: No signs and/or symptoms were reported regarding the EENT system. Neuro: Level of Consciousness is awake, alert, obeys commands, Oriented to person, place, time, situation, Appropriate for age. Cardiovascular: Capillary refill < 3 seconds Patient's skin is warm and dry. Respiratory: Airway is patent Respiratory effort is even, unlabored. GI: Abdomen is round non-distended. : Reports vaginal bleeding that is spotty. : Reports. Derm: No signs and/or symptoms reported regarding the dermatologic system. Musculoskeletal: No signs and/or symptoms reported regarding the musculoskeletal system. 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 - Infectious Disease History:: Denies. - Social history:: Smoking status: Patient denies any tobacco usage or history of. Screenin:40 [facility] ED Fall Risk Assessment (Adult) History of falling in the last 3 months, ld1 including since admission No falls in past 3 months (0 pts) Confusion or Disorientation No (0 pts) Intoxicated or Sedated No (0 pts) Impaired Gait No (0 pts) Mobility Assist Device Used No (0 pt) Altered Elimination No (0 pt) Score/Fall Risk Level 0 - 2 = Low Risk Oriented to surroundings, Maintained a safe environment, Educated pt \T\ family on fall prevention, incl call for assistance when getting out of bed, Assessed \T\ reinforced patient's understanding of fall precautions, Provided non-skid footwear, Hourly rounding (assess needs \T\ fall precautionary measures) done, Used ambulatory aids as needed (educated on \T\ assisted with), Used gait belt as appropriate. Abuse screen: Denies threats or abuse. Denies injuries from another. Nutritional screening: No deficits noted. Tuberculosis screening: No symptoms or risk factors identified. Assessment: 17:40 Reassessment: See triage assessment. ld1 Vital Signs: 17:38 BP 151 / 93; Pulse 83; Resp 18; Temp 98.3(TE); Pulse Ox 100% on R/A; Weight 80.74 kg; ld1 Height 5 ft. 0 in. ; Pain 0/10; 19:17 BP 138 / 82; Pulse 81; Resp 17; Pulse Ox 100% ; me1 17:38 Body Mass Index 34.76 (80.74 kg, 152.4 cm) ld1 17:38 Pain Scale: Adult ld1 ED Course: 17:21 Patient arrived in ED. ra3 17:22 Aldo Ventura MD is Attending Physician. ec2 17:38 Arm band placed on right wrist. ld1 17:39 Triage completed. ld1 17:40 Patient has correct armband on for positive identification. Placed in gown. Bed in low ld1 position. Call light in reach. Side rails up X2. case monitor on. Pulse ox on. NIBP on. Door closed. Noise minimized. Warm blanket given. 17:58 Fiona Yao, DAMON is Primary Nurse. me1 18:08 Initial lab(s) drawn, by hi, sent to lab. Inserted saline lock: 20 gauge in right me1 antecubital area, using aseptic technique. 18:24 Transvaginal OB US In Process Unspecified. EDMS 19:17 Provided Education on: POC. Verbalized understanding.. me1 19:18 No provider procedures requiring assistance completed. IV discontinued, intact, me1 bleeding controlled, No redness/swelling at site. Pressure dressing applied. Administered Medications: No medications were administered Medication: 17:40 VIS not applicable for this client. ld1 Outcome: 19:09 Discharge ordered by . ec2 19:18 Discharged to home ambulatory, hi1 19:18 Condition: stable 19:18 Discharge instructions given to patient, Instructed on discharge instructions, follow up and referral plans. Demonstrated understanding of instructions, follow-up care, 19:18 Patient left the ED. me1 Signatures: Dispatcher [employer] EDNicole Ritter, RN RN ld1 Fiona Yao RN RN me1 Aldo Ventura MD MD ec2 Ximena Rodriguez ra3 Corrections: (The following items were deleted from the chart) 18:07 17:38 Chief complaint: Patient states: Recent confirmation of on me1 night. Pt was told to follow up 2 days later, unable due to weather. Pt requesting repeat HCG level. Reports spotting X 6 days. ld1
[2024-12-14 22:28] VITALS: TEMP 98.3; O2SAT 100
[2024-12-14 22:38] VITALS: BP 138/82
== END 2024-12-14 19:18 | disposition home or self-care (01) ==
LOC: ER 17:19
DX: O20.8 Other hemorrhage in early pregnancy (principal); Z3A.01 Less than 8 weeks gestation of pregnancy
CPT/HCPCS: 36415; 76817; 80048; 84702; 85025; 86900; 86901; 99284

== ENCOUNTER 2024-12-26 17:24 | Emergency (ER) | payer OTHER ==
--- OUTSIDE RECORDS SUMMARY | 2024-12-26 17:27 | XMS REPORT | Continuity of Care Document ---
Author Name Unknown Address [address] [place] [address] [facility] thconnect Address [address] [place] [address] Care Team Providers Care Media Monitor Name Role Phone Daniel Spence Primary Care Physician [phone]- [phone] SANDI BRAVO Attending Clinician Unavail able Trimester, [facility] Res-1st Attending Clinician Unavailable Tara Souza DO Attending Clinician TARA SOUZA Attending Clinician Unavailable Caroline King CNM Attending Clinician [phone]- [phone] Faculty, [facility] Attending Clinician UnaBETTY Pan Attending Clinician Unavailabl e [facility] Attending Clinician + Jatinder Sim Attending Clinician Unavailable Physician, No Primary or Family Admitting Clinic rupinder Unavailable Payers Payer Name Policy Type Policy Number Effective Date Expirati on Date Source Problems Condition Name Condition Details Condition Category Status Onset Date Resolution Date Last Treatment Date Treating Clinician Comments Source Supervisio n of high risk , antepartum Supervisio n of high risk , antepartum Disease Active 12-16 00:00: 00 [facility] Obesity in Obesity in Disease Active 12-16 00:00: 00 [facility] Allergies, Adverse Reactions, Alerts Allergy Name Allergy Type Status Severity Reaction(s) Onset Date Inactive Date Treating Clinician Comments Source No Known Allergie s DA Active U 2023-11 00:00: 00 [facility] NO KNOWN ALLERGIE S Drug Class Active [facility] Social History Social Habit Start Date Stop Date Quantity Comments Source ASSERTION 2024-11-07 00:00:00 [facility] Alcoholic beverage intake 2024-12-26 00:00:00 2024-12-26 00:00:00 Ex-drinker (finding) [facility] History of Social function 2024-12-26 00:00:00 2024-12-26 00:00:00 [facility] Tobacco use and exposure 2024-12-16 00:00:00 2024-12-16 00:00:00 Smokeless tobacco non-user [facility] Sex assigned at 2000 00:00:00 2000 00:00:00 [facility] Smoking Status Start Date Stop Date Source Never smoked tobacco [facility] Medications Ordered Medication Name Filled Medication Name Start Date Stop Date Current Medication? Ordering Clinician Indication Dosage Frequency Signature (SIG) Comments Components Source PNV 67-iron ps-folate no.1-dha (VITAFOL ULTRA) 29 mg iron- 1 mg-200 mg Cap 12-16 00:00: 00 Yes [id number] 1{each} Take 1 Each by mouth in the morning. [facility] proMETHazin e 25 mg tablet 12-16 00:00: 00 Yes [id number] 25mg Take 1 tablet by mouth every 6 (six) hours as needed for Nausea and Vomiting (N/V). [facility] Vital Signs Vital Name Observation Time Observation Value Comments S praveena Systolic blood pressure 2024-12-26 14:26:00 147 mm[Hg] [facility] Diastolic blood pressure 2024-12-26 14:26:00 84 mm[Hg] [facility] Heart rate 2024-12-26 14:26:00 98 /min [facility] Body temperature 2024-12-26 14:26:00 36.67 Mayra [facility] Respiratory rate 2024-12-26 14:26:00 20 /min [facility] Body height 2024-12-26 14:26:00 152.4 cm [facility] Body weight 2024-12-26 14:26:00 82.691 kg [facility] BMI 2024-12-26 14:26:00 35.60 kg/m2 [facility] Systolic blood pressure 2024-12-16 20:24:00 113 mm[Hg] [facility] Diastolic blood pressure 2024-12-16 20:24:00 68 mm[Hg] [facility] Heart rate 2024-12-16 20:24:00 77 /min [facility] Body temperature 2024-12-16 20:24:00 36.22 Mayra [facility] Respiratory rate 2024-12-16 20:24:00 18 /min [facility] Body height 2024-12-16 20:24:00 152.4 cm [facility] Body weight 2024-12-16 20:24:00 81.602 kg [facility] BMI 2024-12-16 20:24:00 35.13 kg/m2 [facility] Procedures Procedure Date / Time Performed Performing Clinicia n Source POCT TEST 2024-12-26 14:28:00 Tara Souza [facility] POCT TEST 2024-12-16 20:14:00 Kip Bravo [facility] POCT URINALYSIS W/O SPECIFIC GRAVITY 2024-12-16 20:12:00 Sandi Bravo [facility] Encounters Start Date/Time End Date/Time Encounter Type Admission Type Attending Clinicians Care Facility Care Department Encounter ID Source 2024-12-26 09:00:00 2024-12-26 09:00:00 Routine Visit [facility] Tara Souza Trimester, [facility] Res-1st 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 .[id number] [facility] 2024-12-23 09:30:00 2024-12-23 09:30:00 Outpatient R BETTY YEN [facility] [id number] [facility] 2024-12-16 00:00:00 2024-12-16 15:36:32 Letter (Out) Sandi Bravo [facility] ..[id number] [facility] 2024-12-16 14:15:00 2024-12-16 15:33:10 Outpatient R SANDI BRAVO [facility] [id number] [facility] 2024-12-16 14:15:00 2024-12-16 15:33:10 Initial Visit Sandi Bravo [facility] .[id number] [facility] 2024-10-21 11:11:00 2024-10-21 12:56:00 Emergency EM Jatinder Sim [facility] [id number] [facility] Results Test Description Test Time Test Comments Results Result Co mments Source [facility] [id number] 20:15:00* Test Item Value Reference Range Interpretation Comme nts POCT PREG (test code = 1605) Positive On board controls acceptable with C Line (test code = 3574) Yes POCT PREG LOT # (test code = 3575) POCT PREG TEST DATE ( test code = 3576) [facility] w/o Specific [id number] 20:13:00* Test Item Value Reference Range Interpretation Comme nts POCT PH U (test code = 3254) 8 mg/dl 5-8 POCT U LEUK EST (test code = 3263) neg Negative - Negative POCT U NIT (test code = 3262) neg Negative - Negati ve POCT U PROT (test code = 3259) 1+ Negative - Negat ronnell POCT U GLU (test code = 3256) neg Negative - Negati ve POCT U KETONE (test code = 3258) neg Negative - Neg ative POCT U BLD (test code = 3257) trace Negative - Negati ve [facility]
--- NOTE | 2024-12-26 18:26 | RAD REPORT ---
EXAM: Transvaginal OB HISTORY: ABD CRAMPING, COMPARISON: 12/14/24 TECHNIQUE: Multiple grayscale and color Doppler images were obtained in a transvaginal pelvic ultraso und. Spectral analysis of the Doppler waveforms of the ovaries were performed. FINDINGS: UTERUS: There is an intrauterine gestational sac. This contains a yolk sac and pole. [place]-rump length: 1.5 cm which estimates gestational age at 8 week 0 day. No heart tones identified. Small subchronic hemorrhage is noted. No free fluid is seen in the pelvis. RIGHT OVARY: Normal flow without focal mass. LEFT OVARY: Nonvisualized. IMPRESSION: IUP identified without heart tones. heart tones were documented on the prior ultrasound f rom 12/14/2024. This is consistent with a failed first trimester . THIS REPORT CONTAINS FINDINGS THAT MAY BE CRITICAL TO PATIENT CARE. The emergent findings were commun icated to Danisha Marlow on 12/26/2024 6:20 PM.
--- NOTE | 2024-12-26 20:07 | ER ---
Nurse's Notes [facility] Name: Christie Ceron Age: 24 yrs Sex: Female : 2000 Arrival Date: 12/26/2024 Time: 17:24 Bed IW3 Private MD: Diagnosis: Complete or unspecified spontaneous without complication Presentation: 12/26 18:15 Chief complaint: Saturday 12/23 had US and no heartbeat was detected, concerned she hb is having miscarriage but denies bleeding. Approx 9 weeks , LMP 10/24/24, HOWARD 07/31/25, . Coronavirus screen: At this time, the client does not indicate any symptoms associated with coronavirus-19. Ebola Screen: No symptoms or risks identified at this time. Initial Sepsis Screen: Does the patient meet any 2 criteria? No. Patient's initial sepsis screen is negative. Does the patient have a suspected source of infection? No. Patient's initial sepsis screen is negative. Risk Assessment: Do you want to hurt yourself or someone else? Patient reports no desire to harm self or others. Onset of symptoms was December 26, 2024. 18:15 Method Of Arrival: Ambulatory hb 18:15 Acuity: DOMO 3 hb Historical: - Allergies: 18:18 No Known Allergies; hb - Home Meds: 18:18 None [Active]; hb - PMHx: 18:18 None; hb - PSHx: 18:18 Tonsillectomy; hb - Immunization history:: Adult Immunizations up to date. - Infectious Disease History:: Denies. - Social history:: Smoking status: Patient denies any tobacco usage or history of. Vital Signs: 18:15 BP 132 / 102; Pulse 68; Resp 16; Temp 98.1; Pulse Ox 100% on R/A; Weight 82.55 kg; hb Height 5 ft. 0 in. ; Pain 0/10; 18:15 Body Mass Index 35.54 (82.55 kg, 152.4 cm) hb 18:15 Pain Scale: Adult hb ED Course: 17:27 Patient arrived in ED. mr 17:28 Danisha Marlow FNP-C is [facility]. kb 17:28 Aldo Ventura MD is Attending Physician. kb 18:09 US Transvaginal Ob In Process Unspecified. EDMS 18:18 Triage completed. hb 18:20 Arm band placed on. hb 18:27 HCG-Quantitative Sent. hb Administered Medications: No medications were administered Outcome: 20:06 Discharge ordered by . kb 20:07 Patient left the ED. hb Signatures: Dispatcher [employer] EDWV Danisha Marlow, RECORD PRESSMAN-C RECORD PRESSMAN-Ckb Blake, Jennifer, Reg Reg mr Anuja Gonzalez, RN RN hb Corrections: (The following items were deleted from the chart) 18:20 18:15 Chief complaint: Saturday 12/23 had US and no heartbeat was detected, hb concerned she is having miscarriage. Approx 9 weeks , LMP 10/24/24, HOWARD 07/31/25, . hb
--- NOTE | 2024-12-26 20:07 | EDPHYS ---
Physician Documentation [facility] Name: Christie Ceron Age: 24 yrs Sex: Female : 2000 Arrival Date: 12/26/2024 Time: 17:24 Bed IW3 Private MD: ED Physician Aldo Ventura HPI: 12/26 17:42 This 24 yrs old Female presents to ER via Unassigned with complaints of test. 17:42 Pt is a 24 year old female who presents to have ultrasound. States she was here on kb 12/14/24 for vaginal bleeding, was diagnosed with a subchorionic hematoma and told to follow up with OB. She followed up that Thursday and was told everything looked good. States the bleeding had stopped and she has had no pain. Went back for a follow up on 12/23/24 and was told there was no heart beat so she needed to go to [place] today for blood work and another US to confirm. Went to [facility] today and they told her there was no reason to do a repeat US or bloodwork. States she came back here just to confirm that there is no heartbeat so she knows for sure. . Historical: - Allergies: 18:18 No Known Allergies; hb - Home Meds: 18:18 None [Active]; hb - PMHx: 18:18 None; hb - PSHx: 18:18 Tonsillectomy; hb - Immunization history:: Adult Immunizations up to date. - Infectious Disease History:: Denies. - Social history:: Smoking status: Patient denies any tobacco usage or history of. ROS: 17:41 Constitutional: As per HPI kb Exam: 17:41 Constitutional: This is a well developed, well nourished patient who is awake, alert, kb and in no acute distress. Head/Face: Normocephalic, atraumatic. ENT: Moist Mucous membranes Cardiovascular: Regular rate Respiratory: Respirations even and unlabored. No increased work of breathing. Talking in full sentences Abdomen/GI: Soft, non-tender. No distention Skin: Warm, dry with normal turgor. Normal color. MS/ Extremity: Pulses equal, no cyanosis. Neurovascular intact. Full, normal range of motion. Neuro: Awake and alert, GCS 15, oriented to person, place, time, and situation. Vital Signs: 18:15 BP 132 / 102; Pulse 68; Resp 16; Temp 98.1; Pulse Ox 100% on R/A; Weight 82.55 kg; hb Height 5 ft. 0 in. ; Pain 0/10; 18:15 Body Mass Index 35.54 (82.55 kg, 152.4 cm) hb 18:15 Pain Scale: Adult hb MDM: 17:28 Medical Screening Exam initiated kb 17:40 Data reviewed: vital signs, nurses notes. Test considered but Not performed: Labs: cbc, kb cmp and abo/rh considered, but pt has had no bleeding and abo/rh was completed at recent visit. A+. Historians other than the Patient: Parent: mother. External Records Reviewed: previous labs reviewed from 12/14. HCG 37880, A positive blood type. 20:03 Differential diagnosis: threatened Ab, inevitable Ab, complete Ab, retained Ab. kb Counseling: I had a detailed discussion with the patient and/or guardian regarding the historical points, exam findings, and any diagnostic results supporting the discharge/admit diagnosis, lab results, radiology results, the need for outpatient follow up, an OB/Gyne specialist, to return to the emergency department if symptoms worsen or persist or if there are any questions or concerns that arise at home. ED course: Pt states she was told she could try to pass the fetus naturally and offered other options by [facility]. States she wants to do everything naturally so does not want further workup at this time. Educated on return precautions. . 12/26 17:39 Order name: HCG-Quantitative; Complete Time: 19:18 kb 12/26 17:39 Order name: US Transvaginal Ob; Complete Time: 18:28 kb Administered Medications: No medications were administered Disposition Summary: 12/26/24 20:06 Discharge Ordered Notes: Location: Home kb Condition: Stable kb Diagnosis - Complete or unspecified spontaneous without complication kb Followup: kb - With: Emergency Department - When: As needed - Reason: Worsening of condition Followup: kb - With: Private Physician - When: 2 - 3 days - Reason: Recheck today's complaints, Continuance of care, Re-evaluation by your physician Discharge Instructions: - Discharge Summary Sheet kb - Miscarriage, [id number] kb Forms: - Medication Reconciliation Form kb - Antibiotic Education kb - Prescription Opioid Use kb - Patient Portal Instructions kb - Leadership Thank You Letter kb Addendum: 12/28/2024 17:31 I was immediately available for consultation during this patient's visit. I did not e c2 personally see the patient or discuss the patient with the ANDREA. . Signatures: Dispatcher [employer] Danisha Busby FNP-C FNP-Ckb Baxter, Heather, RN RN Aldo Peterson MD MD ec2
[2024-12-26 20:44] VITALS: BP 132/102; TEMP 98.1; O2SAT 100
== END 2024-12-26 20:07 | disposition home or self-care (01) ==
LOC: ER 17:24
DX: O03.9 Complete or unspecified spontaneous abortion without complication (principal)
CPT/HCPCS: 36415; 76817; 84702; 99282

== ENCOUNTER 2025-01-02 21:09 | Emergency (ER) | payer OTHER ==
--- OUTSIDE RECORDS SUMMARY | 2025-01-02 21:12 | XMS REPORT | Continuity of Care Document ---
Author Name Unknown Address [address] [facility] [address] [place] [address] [facility] thconnect Address [address] [facility] [place] [address] Care Team Providers Care Sandwich Artist Name Role Phone ALEK HILLIARD Primary Care Physician Leigh vailable SANDI BRAVO Attending Clinician Unavail able Trimester, [facility] Res-1st Attending Clinician Unavailable Tara Souza DO Attending Clinician [phone] TARA SOUZA Attending Clinician Unavailable Caroline King CNM Attending Clinician [phone] Faculty, [facility] Attending Clinician Unava BETTY Singleton Attending Clinician Unavailabl e Ultrasound, [facility] Attending Clinician UnavailBetty Fuentes MD Attending Clinician [phone] [facility]idia [facility] Attending Clinician + Jatinder Sim Attending Clinician Unavailable Physician, No Primary or Family Admitting Clinic rupinder Unavailable Payers Payer Name Policy Type Policy Number Effective Date Expirati on Date Source [facility] JUN SINGH [id number] 2024 00:00:00 Problems Condition Name Condition Details Condition Category Status Onset Date Resolution Date Last Treatment Date Treating Clinician Comments Source Supervisio n of high risk , antepartum Supervisio n of high risk , antepartum Disease Active 12-16 00:00: 00 [facility] Obesity in Obesity in Disease Active 12-16 00:00: 00 [facility] Allergies, Adverse Reactions, Alerts Allergy Name Allergy Type Status Severity Reaction(s) Onset Date Inactive Date Treating Clinician Comments Source No Known Allergie s DA Active U 2023-11 00:00: 00 [facility] NO KNOWN ALLERGIE S Drug Class Active [facility] Social History Social Habit Start Date Stop Date Quantity Comments Source ASSERTION 2024-11-07 00:00:00 [facility] of Social function 2024-12-26 00:00:00 2024-12-26 00:00:00 [facility] Tobacco use and exposure 2024-12-16 00:00:00 2024-12-16 00:00:00 Smokeless tobacco non-user [facility] Alcoholic beverage intake 2024-12-16 00:00:00 2024-12-16 00:00:00 Ex-drinker (finding) [facility] Sex assigned at 2000 00:00:00 2000 00:00:00 [facility] Smoking Status Start Date Stop Date Source Never smoked tobacco [facility] Medications Ordered Medication Name Filled Medication Name Start Date Stop Date Current Medication? Ordering Clinician Indication Dosage Frequency Signature (SIG) Comments Components Source PNV 67-iron ps-folate no.1-dha (VITAFOL ULTRA) 29 mg iron- 1 mg-200 mg Cap 12-16 00:00: 00 Yes [id number] 1{each} Take 1 Each by mouth in the morning. [facility] proMETHazin e 25 mg tablet 12-16 00:00: 00 Yes [id number] 25mg Take 1 tablet by mouth every 6 (six) hours as needed for Nausea and Vomiting (N/V). [facility] Vital Signs Vital Name Observation Time Observation Value Comments S arelis Systolic blood pressure 2024-12-26 14:26:00 147 mm[Hg] [place] [facility] Diastolic blood pressure 2024-12-26 14:26:00 84 mm[Hg] [facility] Heart rate 2024-12-26 14:26:00 98 /min Unive [facility] Body temperature 2024-12-26 14:26:00 36.67 Mayra [facility] Respiratory rate 2024-12-26 14:26:00 20 /min [facility] Body height 2024-12-26 14:26:00 152.4 cm [facility] Body weight 2024-12-26 14:26:00 82.691 kg [facility] BMI 2024-12-26 14:26:00 35.60 kg/m2 [facility] Systolic blood pressure 2024-12-16 20:24:00 113 mm[Hg] [facility] Diastolic blood pressure 2024-12-16 20:24:00 68 mm[Hg] [facility] Heart rate 2024-12-16 20:24:00 77 /min Unive [facility] Body temperature 2024-12-16 20:24:00 36.22 Mayra [facility] Respiratory rate 2024-12-16 20:24:00 18 /min [facility] Body height 2024-12-16 20:24:00 152.4 cm [facility] Body weight 2024-12-16 20:24:00 81.602 kg [facility] BMI 2024-12-16 20:24:00 35.13 kg/m2 [facility] Procedures Procedure Date / Time Performed Performing Clinicia n Source POCT TEST 2024-12-26 14:28:00 Tara Souza [facility] FIRST TRIMESTER ULTRASOUND 2024-12-23 16:09:00 Caroline King [facility] POCT TEST 2024-12-16 20:14:00 Kip Bravo [facility] POCT URINALYSIS W/O SPECIFIC GRAVITY 2024-12-16 20:12:00 Sandi Bravo [facility] Encounters Start Date/Time End Date/Time Encounter Type Admission Type Attending Clinicians Care Facility Care Department Encounter ID Source 2025-01-09 09:40:00 2025-01-09 09:40:00 Outpatient R [facility] [id number] [facility] 2024-12-26 09:00:00 2024-12-26 09:00:00 Routine Visit Trimester, [facility] Res-1st Tara Souza Trimester, [facility] Res-1st [facility] 1..114 [id number] [facility] 2024-12-26 09:00:00 2024-12-26 08:51:23 Outpatient R TARA SOUZA [facility] [id number] [facility] 2024-12-23 00:00:00 2024-12-23 15:35:29 Abstract Caroline King [facility] 1..114 [id number] [facility] 2024-12-23 00:00:00 2024-12-23 10:08:36 Letter (Out) Faculty, Kervin Diaz [facility] Faculty, Kervin Diaz [facility] 1.84.114 [id number] [facility] 2024-12-23 09:30:00 2024-12-23 10:06:45 Outpatient R BETTY YEN [facility] [id number] [facility] 2024-12-23 09:30:00 2024-12-23 10:06:45 Natural Sciences Department Chair Visit Ultrasound, Betty Clark [facility] 1.84.114 [id number] [facility] 2024-12-16 00:00:00 2024-12-16 15:36:32 Letter (Out) Sandi Bravo [facility] [id number] [facility] 2024-12-16 14:15:00 2024-12-16 15:33:10 Outpatient R SANDI BRAVO [facility] [id number] [facility] 2024-12-16 14:15:00 2024-12-16 15:33:10 Initial Visit Sandi Bravo [facility] [id number] [id number] [facility] 2024-10-21 11:11:00 2024-10-21 12:56:00 Emergency EM Jatinder Sim [facility] [id number] [facility] Results Test Description Test Time Test Comments Results Result Co mments Source [facility] [id number] 20:15:00* Test Item Value Reference Range Interpretation Comme nts POCT PREG (test code = 1605) Positive On board controls acceptable with C Line (test code = 3574) Yes POCT PREG LOT # (test code = 3575) POCT PREG TEST DATE ( test code = 3576) [facility] Urinalysis w/o Specific [id number] 20:13:00* Test Item Value Reference Range Interpretation [...] = 3257) trace Negative - Negati ve [facility]
--- NOTE | 2025-01-02 22:06 | RAD REPORT ---
EXAM: Transvaginal OB HISTORY: vaginal bleeding, 9w preg COMPARISON: 12/26/2024 TECHNIQUE: Multiple grayscale and color Doppler images were obtained in a transvaginal pelvic ultraso und. Spectral analysis of the Doppler waveforms of the ovaries were performed. FINDINGS: UTERUS: No IUP identified. Fluid present within the cervix. Endometrial echo complex measures 6 mm. No free fluid is seen in the pelvis. RIGHT OVARY: Normal flow without focal mass. LEFT OVARY: Nonvisualized. IMPRESSION: No IUP identified consistent with recent failed first trimester . Vascular flow present in the right ovary. Left ovary not visualized.
[2025-01-02 22:25] LABS: Anion Gap 7.6 mEq/L (5.0-15.0); Potassium 3.6 mEq/L (3.5-5.1)
[2025-01-02 22:26] LABS: Absolute Basophils 0.1 K/uL (0-0.5); Absolute Eosinophils 0.1 K/uL (0-0.5); Absolute Lymphocytes (CBC) 1.6 K/uL (0.7-4.9); Absolute Monocytes 0.8 K/uL (0.1-1.3); Absolute Neutrophil 8.6 K/uL (1.8-8.0); Basophils % 0.5 % (0-1.3); Eosinophils % 0.5 % (0-4.4); Hematocrit 37.5 % (36.0-45.0); Hemoglobin 12.8 g/dL (12.0-15.0); Lymphocytes % 14.4 % (15.3-44.8); MCH 28.7 pg (27.0-35.0); MCHC 34.1 g/dL (32.0-36.0); MCV 84.1 fL (80-100); MPV 9.9 fL (7.6-11.3); Monocytes % 7.1 % (3.3-12.3); Neutrophils % 77.5 % (41.7-73.7); Nucleated Red Blood Cells % 0.1 % (0-0); Platelets 184 thou/uL (152-406); RBC Red Blood Cell Count 4.46 M/uL (3.86-4.86); Red Cell Distribution Width 13.6 % (12.1-15.2)
--- NOTE | 2025-01-02 22:38 | EDPHYS ---
Physician Documentation [facility] Name: Christie Ceron Age: 24 yrs Sex: Female : 2000 Arrival Date: 01/02/2025 Time: 21:09 Bed 23 Private MD: ED Physician Aldo Ventura HPI: 01/02 21:28 This 24 yrs old Female presents to ER via Ambulatory with complaints of ec2 Vaginal Bleeding - 9wks preg. 21:28 Patient arrives today for vaginal bleeding. Reports that she was diagnosed with ec2 impending miscarriage. Is having vaginal bleeding and abdominal discomfort. Wanted to be reevaluated.. 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 - Infectious Disease History:: Denies. - Social history:: Smoking status: Patient denies any tobacco usage or history of. Patient/guardian denies using alcohol, street drugs. ROS: 21:29 Constitutional: as per hpi ec2 Exam: 21:29 Constitutional: GEN: NAD Head: atraumatic Eyes: EOMI Ears: External ears are ec2 normal. CV: regular rate LUNGS: no respiratory distress ABD: non-distended, soft and nontender SKIN: no evidence of rashes MSK: no evidence of trauma Vital Signs: 21:25 BP 137 / 85; Pulse 87; Resp 16; Temp 98.9; Pulse Ox 100% on R/A; Weight 85.73 kg (R); lg3 Height 5 ft. 0 in. (R); Pain 10/10; 21:25 Body Mass Index 36.91 (85.73 kg, 152.4 cm) lg3 21:25 Pain Scale: Adult lg3 MDM: 21:13 Medical Screening Exam initiated ec2 21:29 Data reviewed: vital signs, nurses notes. ED course: Patient arrives today for ec2 evaluation of abdominal pain along with nausea and vomiting and vaginal bleeding with recent diagnosis of impending miscarriage. Examination with hemodynamically stable individual. Will obtain lab work, repeat ultrasonography. Suspect progression of her miscarriage.. 21:31 ED course: External record work shows that patient had ultrasonography without ec2 heart tones recently. Patient has known A+ blood type. 22:37 ED course: IUP no longer visualized. Will discharge home.. ec2 01/02 21:14 Order name: CBC with Diff; Complete Time: 22:37 ec2 01/02 21:14 Order name: BMP; Complete Time: 22:37 ec2 01/02 21:14 Order name: Abo/rh Typing; Complete Time: 22:50 ec2 01/02 22:37 Order name: Quantitative Hcg ec2 01/02 21:14 Order name: Transvaginal OB US; Complete Time: 22:37 ec2 Administered Medications: 22:51 Drug: Ondansetron IVP 4 mg IVP once; over 2 minutes Route: IVP; Site: right antecubital;jb4 22:52 Follow up: Response: Medication administered at discharge. jb4 22:51 Drug: Acetaminophen PO 1000 mg PO once Route: PO; jb4 22:52 Follow up: Response: Medication administered at discharge. jb4 22:51 Drug: Ketorolac IVP 15 mg IVP once Route: IVP; Site: right antecubital; jb4 22:52 Follow up: Response: Medication administered at discharge. jb4 22:52 Not Given (Physician Discretion): ns 0.9% 500 ml 500 ml IV at 1 bolus once; to be given jb4 as a bolus over 30 minutes Disposition Summary: 01/02/25 22:38 Discharge Ordered Notes: Location: Home ec2 Condition: Stable ec2 Diagnosis - Complete or unspecified spontaneous without complication ec2 Followup: ec2 - With: Private Physician - When: - Reason: Re-evaluation by your physician Discharge Instructions: - Discharge Summary Sheet ec2 - Miscarriage ec2 Forms: - Work release form jb4 - Medication Reconciliation Form ec2 - Antibiotic Education ec2 - Prescription Opioid Use ec2 - Patient Portal Instructions ec2 - Leadership Thank You Letter ec2 Prescriptions: - acetaminophen-codeine 300-30 mg Oral tablet - take 1 tablet ORAL route 2 times per day; 15 tablet; Refills: 0, Product ec2 Selection Permitted Signatures: Dispatcher [employer] EDMS Lino Ro RN RN jb4 Romana Wilson RN RN lg3 Aldo Ventura MD MD ec2 Corrections: (The following items were deleted from the chart) 22:37 22:37 QUANTITATIVE HCG+C.LAB.BRZ ordered. DEVIKA FORTUNE
--- NOTE | 2025-01-02 22:38 | ER ---
Nurse's Notes [facility] Name: Christie Ceron Age: 24 yrs Sex: Female : 2000 Arrival Date: 01/02/2025 Time: 21:09 Bed 23 Private MD: Diagnosis: Complete or unspecified spontaneous without complication Presentation: 01/02 21:25 Chief complaint: Patient states: diagnosed with a miscarriage on 12/23. bleeding, pain lg3 and nausea increased tonight. Coronavirus screen: Client denies travel out of the [place] in the last 14 days. At this time, the client does not indicate any symptoms associated with coronavirus-19. Ebola Screen: No symptoms or risks identified at this time. Initial Sepsis Screen: Does the patient meet any 2 criteria? No. Patient's initial sepsis screen is negative. Does the patient have a suspected source of infection? No. Patient's initial sepsis screen is negative. Risk Assessment: Do you want to hurt yourself or someone else? Patient reports no desire to harm self or others. Onset of symptoms was January 02, 2025. 21:25 Method Of Arrival: Ambulatory lg3 21:25 Acuity: DOMO 3 lg3 Triage Assessment: 21:27 General: Appears in no apparent distress. uncomfortable, Behavior is calm, cooperative. lg3 Pain: Complains of pain in back and pelvis. EENT: No deficits noted. No signs and/or symptoms were reported regarding the EENT system. Neuro: No deficits noted. [place] Agitation-Sedation Scale (RASS): 0 - Alert and Calm Level of Consciousness is awake, alert, obeys commands, Oriented to person, place, time, situation. Cardiovascular: No deficits noted. Denies chest pain, shortness of breath, Capillary refill < 3 seconds Clubbing of nail beds is absent JVD is absent Patient's skin is warm and dry. Respiratory: No deficits noted. Airway is patent Respiratory effort is even, unlabored, Respiratory pattern is regular, symmetrical. GI: No deficits noted. Abdomen is round non-distended, Reports intolerance of fluids, intolerance of food, nausea, vomiting. : Reports vaginal bleeding that is heavy flow. Derm: No deficits noted. No signs and/or symptoms reported regarding the dermatologic system. Skin is intact, is healthy with good turgor, Skin is dry, Skin is normal, Skin temperature is warm. Musculoskeletal: No deficits noted. No signs and/or symptoms reported regarding the musculoskeletal system. Circulation, motion, and sensation intact. Range of motion: intact in all extremities. 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 - Infectious Disease History:: Denies. - Social history:: Smoking status: Patient denies any tobacco usage or history of. Patient/guardian denies using alcohol, street drugs. Screenin:58 [facility] ED Fall Risk Assessment (Adult) History of falling in the last 3 months, jb4 including since admission No falls in past 3 months (0 pts) Confusion or Disorientation No (0 pts) Intoxicated or Sedated No (0 pts) Impaired Gait No (0 pts) Mobility Assist Device Used No (0 pt) Altered Elimination No (0 pt) Score/Fall Risk Level 0 - 2 = Low Risk Oriented to surroundings, Maintained a safe environment. Abuse screen: Denies threats or abuse. Nutritional screening: No deficits noted. Tuberculosis screening: No symptoms or risk factors identified. Assessment: 22:58 Reassessment: Patient appears in no apparent distress at this time. Patient and/or jb4 family updated on plan of care and expected duration. Pain level reassessed. Patient is alert, oriented x 3, equal unlabored respirations, skin warm/dry/pink. Vital Signs: 21:25 BP 137 / 85; Pulse 87; Resp 16; Temp 98.9; Pulse Ox 100% on R/A; Weight 85.73 kg (R); lg3 Height 5 ft. 0 in. (R); Pain 10/10; 21:25 Body Mass Index 36.91 (85.73 kg, 152.4 cm) lg3 21:25 Pain Scale: Adult lg3 ED Course: 21:13 Patient arrived in ED. ra3 21:13 Aldo Ventura MD is Attending Physician. ec2 21:27 Triage completed. lg3 21:27 Arm band placed on right wrist. lg3 21:45 Transvaginal OB US In Process Unspecified. EDMS 22:07 Inserted saline lock: 20 gauge in right antecubital area, using aseptic technique. oe Blood collected. Flushed with 10 mL NS. 22:13 CBC with Diff Sent. oe 22:13 BMP Sent. oe 22:13 Abo/rh Typing Sent. oe 22:58 Patient has correct armband on for positive identification. Bed in low position. Call jb4 light in reach. Side rails up X 1. Provided Education on: discharge instructions.. 22:58 No provider procedures requiring assistance completed. IV discontinued, intact, jb4 bleeding controlled, No redness/swelling at site. Pressure dressing applied. Administered Medications: 22:51 Drug: Ondansetron IVP 4 mg IVP once; over 2 minutes Route: IVP; Site: right antecubital;jb4 22:52 Follow up: Response: Medication administered at discharge. jb4 22:51 Drug: Acetaminophen PO 1000 mg PO once Route: PO; jb4 22:52 Follow up: Response: Medication administered at discharge. jb4 22:51 Drug: Ketorolac IVP 15 mg IVP once Route: IVP; Site: right antecubital; jb4 22:52 Follow up: Response: Medication administered at discharge. jb4 22:52 Not Given (Physician Discretion): ns 0.9% 500 ml 500 ml IV at 1 bolus once; to be given jb4 as a bolus over 30 minutes Medication: 22:58 VIS not applicable for this client. jb4 Outcome: 22:38 Discharge ordered by . ec2 22:58 Discharged to home ambulatory, jb4 22:58 Condition: stable 22:58 Discharge instructions given to patient, family, Instructed on discharge instructions, follow up and referral plans. no drinking with medication, no driving heavy equipment, medication usage, Demonstrated understanding of instructions, follow-up care, medications, Prescriptions given X 1, 22:59 Patient left the ED. jb4 Signatures: Dispatcher [employer] EDMS Lino Ro, RN RN jb4 Maximo Bennett Lacie, RN RN lg3 Aldo Ventura MD MD ec2 Ximena Rodriguez ra3
[2025-01-02] MEDS ORDERED: KETOROLAC 30 MG/ML INJ ONE (22:44)
[2025-01-02] MEDS ORDERED: ONDANSETRON 4 MG/2 ML VIAL ONE (22:44)
[2025-01-02] MEDS ORDERED: ACETAMINOPHEN 500 MG TAB ONE (22:44)
[2025-01-03 02:39] VITALS: BP 137/85; TEMP 98.9; O2SAT 100
== END 2025-01-02 22:59 | disposition home or self-care (01) ==
LOC: ER 21:09
DX: O03.9 Complete or unspecified spontaneous abortion without complication (principal)
CPT/HCPCS: 85025; 80048; 36415; 86900; 86901; 84702; 76817; J2405; 96374; 96375; 99284